=== PATIENT | male | born 1965 ===

== ENCOUNTER → 2017-12-22 09:34 | Outpatient (CLI) | payer OTHER | END | disposition home or self-care (01) | LOC: LAB 09:34 | DX: N30.00 Acute cystitis without hematuria (principal); R82.79 Other abnormal findings on microbiological examination of urine ==

== ENCOUNTER 2019-04-24 07:45 | Emergency (ER) | payer OTHER ==
[~2019-04-24] VITALS: Ht 175.3 cm; Wt 136.1 kg
[2019-04-24] MEDS ORDERED: LEVAQUIN500 MG PO (12:23)
== END 2019-04-24 12:58 | disposition home or self-care (01) ==
LOC: ER 07:45
DX: R31.9 Hematuria, unspecified (principal)